=== PATIENT | male | born 1975 | race Two or more races ===

== ENCOUNTER 2018-05-11 10:23 | Emergency (ER) | payer MEDICAID, OTHER ==
[~2018-05-11] VITALS: Ht 185.4 cm; Wt 131.5 kg
[2018-05-11] MEDS ORDERED: PRILOSEC OTC20 MG ORAL (10:39)
[2018-05-11 10:48] VITALS: BP 135/88
--- NOTE | 2018-05-11 12:14 | Diagnostic Imaging Report ---
EXAM: CT Head Without Intravenous Contrast CLINICAL HISTORY: PAIN TECHNIQUE: Axial computed tomography images of the head/brain without intravenous contrast. CTDI is 70.38 mGy and DLP is 1463.84 mGy-cm. One or more of the following dose reduction techniques were used: automated exposure control, adjustment of the mA and/or kV according to patient size, use of iterative reconstruction technique. COMPARISON: No relevant prior studies available. FINDINGS: Brain: Unremarkable. No hemorrhage. No significant white matter disease. No edema. Ventricles: Unremarkable. No ventriculomegaly. Bones/joints: Unremarkable. No acute fracture. Soft tissues: Unremarkable. Sinuses: Mild mucosal thickening bilateral maxillary sinuses. Mastoid air cells: Unremarkable as visualized. No mastoid effusion. IMPRESSION: 1. No acute intracranial abnormality. 2. Mild mucosal thickening bilateral maxillary sinuses.
--- NOTE | 2018-05-11 12:51 | Diagnostic Imaging Report ---
EXAM: XR Left Tibia and Fibula, 2 Views CLINICAL HISTORY: PAIN TECHNIQUE: Frontal and lateral views of the left tibia and fibula. COMPARISON: No relevant prior studies available. FINDINGS: Bones/joints: Unremarkable. No acute fracture. No dislocation. Soft tissues: Anterior lower leg soft tissue swelling. No radiopaque foreign body. IMPRESSION: 1. Anterior lower leg soft tissue swelling. 2. No fracture or malalignment.
[2018-05-11] MEDS ORDERED: IBUPROFEN600 MG ORAL (13:40)
--- NOTE | 2018-05-11 14:01 | Consultation ---
Consult Note Consult Note 42 y/o male with facial swelling and nasal laceration s/p fall no LOC c/o breathing difficulty R>L and pain PE: nasal and perinasal edema, no significant bony deviation visible. septum and turbinate on R lacerated but no septal hematoma CT scan negative and read as negative Assessment/Plan Discharge with meds per ER physician follow up with me prn if nasal breathing does not improve JENNIFER MOREJON M.D. May 11, 2018 14:01
--- NOTE | 2018-05-11 14:03 | Operative Note - PDOC ---
Operative Note Operative Note Date of Operation/Procedure: May 11, 2018 Chief Complaint: Nasal laceration Pre-op Diagnosis: Nasal laceration Procedure: Closure of nasal laceration with dermabond Post-op Diagnosis: same as pre-op Specimen: none Complications: none Condition: stable Estimated Blood Loss: none Drains: none Implant(s) used?: No JENNIFER MOREJON M.D. May 11, 2018 14:03
[2018-05-11 14:17] VITALS: BP 128/88
--- NOTE | 2018-05-13 15:14 | Emergency Room Report ---
History of Present Illness General Chief Complaint: Multiple Trauma/Fall Source: Patient Present Illness HPI Patient is a 42-year-old male brought in by self after increased nasal pain as well as patient was noted to have had recent fall. Patient reportedly fell onto some crates and the struck the left leg as well as his bridge of his nose. Patient denied any dizziness or lightheaded prior to this. Patient denied any vomiting reported having a moderate headache.The patient also reports some left lower extremity swelling. He denies any numbness or tingling to his feet. Allergies: Coded Allergies: No Known Allergies (Unverified , 05/11/18) Patient History Past Medical History: see triage record Reviewed Nursing Documentation: PMH: Agreed; PSxH: Agreed Nursing Documentation-PMH Past Medical History: No Stated History Review of Systems All Other Systems: negative except mentioned in HPI Physical Exam Vital Signs Date Time Temp Pulse Resp B/P (MAP) Pulse Ox O2 Delivery O2 Flow Rate FiO2 05/11/18 10:34 97.9 91 18 135/88 97 Room Air 97.9 General Appearance: well appearing, no apparent distress, alert, GCS 15 Head: normocephalic, atraumatic Eyes: bilateral eye other - nasal swelling and hemorrhage, laceration to nasal bridge ENT: hearing grossly normal, normal voice Neck: full range of motion, supple Respiratory: no respiratory distress, speaking full sentences Musculoskeletal: no calf tenderness, swelling - anterior left leg, hematoma, no tense compartment. Neurologic: normal gait Psychiatric: mood/affect normal Skin: no rash Medical Decision Making Diagnostic Impression: Primary Impression: Fall Additional Impressions: Nasal laceration Hematoma ER Course Patient presented for head Differential diagnosis included was not limited to neck fracture, CVA, close head injury, syncopal episode, basilar ischemia. The patient was seen by plastic surgeon for facial injury. The CT the head showed no nasal fracture. The patient was advised to keep his leg elevated as possible and to continue ice the wound. The patient is advised to follow up with primary care doctor in 1-2 days. Patient is advised to return if any worsening condition or if any changes in status that are concerning. This report is dictated with [employer] miniature set constructor software which may occasionally lead to discrepancies related to use of this software. Last Vital Signs Date Time Temp Pulse Resp B/P (MAP) Pulse Ox O2 Delivery O2 Flow Rate FiO2 05/11/18 14:17 97.9 75 18 128/88 100 Room Air 97.9 Status: improved Disposition: HOME, SELF-CARE Condition: Stable Scripts Ibuprofen* (MOTRIN*) 600 Mg Tablet 600 MG ORAL Q8H PRN for For Pain, #30 TAB 0 Refills Prov: Dontae Myers MD 05/11/18 Referrals: [facility],REFERRING (PCP) Patient Instructions: Tissue Adhesive Wound Care, Hematoma Dontae Myers MD May 13, 2018 15:14
== END 2018-05-11 14:17 | disposition home or self-care (01) ==
LOC: EMR 11:05
DX: S01.21XA Laceration without foreign body of nose, initial encounter (principal); S80.12XA Contusion of left lower leg, initial encounter; W18.00XA Striking against unspecified object with subsequent fall, initial encounter; Y93.9 Activity, unspecified; Y92.9 Unspecified place or not applicable
CPT/HCPCS: 70450; 99283